=== PATIENT | male | born 1975 | race African-American/Black ===

== ENCOUNTER 2017-11-24 14:34 | Emergency (ER) | payer OTHER ==
--- NOTE | 2017-11-24 16:33 | Cat Scan Report ---
FINAL REPORT EXAM: CT HEAD/BRAIN WO CON HISTORY: head trauma TECHNIQUE: CT of the Head without IV contrast. PRIORS: None currently available. FINDINGS: There is no evidence for acute ischemia. There is no hemorrhage. There is no midline shift. There is no hydrocephalus. There is no mass. Age appropriate pelayo-white matter attenuation is noted. There is no calvarial fracture. The temporal bones demonstrate aerated mastoid air cells. The middle ears appear unremarkable. Moderate mucosal thickening in both ethmoid sinuses. Antm-en-lklfikgb mucosal thickening in both sphenoid sinuses and maxillary sinuses. Possible air-fluid level in the right maxillary sinus. Irregularity of the right orbital floor and right posterior maxillary wall is suspicious for fracture. Globes are intact. IMPRESSION: No acute intracranial findings. Sinus disease. Possible air-fluid level in the right maxillary sinus. Possible left orbital floor and posterior maxillary wall fractures. Maxillofacial CT may be helpful if clinically indicated.
[2017-11-24] MEDS ORDERED: NACL 0.9% 500 ML IR ONE (17:05)
--- NOTE | 2017-11-24 17:19 | Emergency Department Report ---
ED Head Trauma HPI - General Chief complaint: Head Injury Stated complaint: LFT SIDE KNOT Time Seen by Provider: 11/24/17 16:49 Source: patient Mode of arrival: Ambulatory Limitations: No Limitations - History of Present Illness Initial comments: Patient is 42 years old male. He presented to the ER complaining of head injury. Patient stated that a tree fell on his head. Patient presented with a 4 cm laceration to the left part of the scalp, bleeding controlled. Patient denied any loss of consciousness or other injuries. MD Complaint: head injury -: Sudden, This afternoon Location: frontal Loss of Consciousness: no Previous Trauma to this Area: No Place: home Radiation: none - Related Data Previous Rx's Medication Instructions Recorded Last Taken Type Omeprazole [Prilosec] 40 mg PO QDAY #30 capsule. 12/21/12 Unknown Rx Amoxicillin [Amoxicillin TAB] 875 mg PO BID #14 tablet 11/24/17 Unknown Rx HYDROcodone/APAP 5-325 [[place] 1 each PO Q6HR PRN #14 tablet 11/24/17 Unknown Rx 5/325] Ondansetron [Zofran Odt] 4 mg PO Q8HR PRN #14 tab.rapdis 11/24/17 Unknown Rx Allergies/Adverse reactions: Allergies Allergy/AdvReac Type Severity Reaction Status Date / Time No Known Allergies Allergy Verified 12/21/12 10:43 ED Review of Systems ROS: Stated complaint: LFT SIDE KNOT Other details as noted in HPI Comment: All other systems reviewed and negative Constitutional: denies: chills, fever Respiratory: denies: cough, orthopnea, shortness of breath, SOB with exertion, wheezing Cardiovascular: denies: chest pain, palpitations Gastrointestinal: denies: abdominal pain, nausea, vomiting, diarrhea, constipation, hematochezia Genitourinary: denies: urgency, dysuria, frequency, hematuria, testicular pain Musculoskeletal: denies: back pain Neurological: denies: headache, weakness, numbness, paresthesias, abnormal gait ED Past Medical Hx - Past Medical History Hx Asthma: No - Social History Smoking Status: Never Smoker Substance Use Type: None - Medications Home Medications: Home Medications Medication Instructions Recorded Confirmed Last Taken Type Omeprazole [Prilosec] 40 mg PO QDAY #30 capsule. 12/21/12 Unknown Rx Amoxicillin [Amoxicillin TAB] 875 mg PO BID #14 tablet 11/24/17 Unknown Rx HYDROcodone/APAP 5-325 [[place] 1 each PO Q6HR PRN #14 tablet 11/24/17 Unknown Rx 5/325] Ondansetron [Zofran Odt] 4 mg PO Q8HR PRN #14 tab.rapdis 11/24/17 Unknown Rx ED Physical Exam - General Limitations: No Limitations General appearance: alert, in no apparent distress - Head Head exam: Present: normal inspection, other (4 cm laceration to the scalp left parietal area) - Eye Eye exam: Present: normal appearance, PERRL - ENT ENT exam: Present: normal exam, normal orophraynx, mucous membranes moist - Neck Neck exam: Present: normal inspection, full ROM. Absent: tenderness, meningismus, lymphadenopathy, thyromegaly - Respiratory Respiratory exam: Present: normal lung sounds bilaterally. Absent: respiratory distress, wheezes, rales, chest wall tenderness - Cardiovascular Cardiovascular Exam: Present: regular rate, normal rhythm, normal heart sounds - GI/Abdominal GI/Abdominal exam: Present: soft, normal bowel sounds. Absent: distended, tenderness, guarding, rebound, rigid, organomegaly, mass, bruit, pulsatile mass , hernia - Extremities Exam Extremities exam: Present: normal inspection, full ROM, normal capillary refill. Absent: pedal edema, calf tenderness - Back Exam Back exam: Present: normal inspection, full ROM. Absent: CVA tenderness (R), CVA tenderness (L), muscle spasm, paraspinal tenderness, vertebral tenderness - Neurological Exam Neurological exam: Present: alert, oriented X3, CN II-XII intact, normal gait, reflexes normal - Skin Skin exam: Present: warm, normal color ED Course Vital Signs 11/24/17 11/24/17 11/24/17 14:42 15:42 17:54 Temperature 98.4 F Pulse Rate 94 H Respiratory 16 15 15 Rate Blood Pressure 151/99 O2 Sat by Pulse 100 Oximetry - Laceration /Wound Repair Head Wound Location: head Wound's Depth, Shape: linear Wound Explored: no foreign body removed Irrigated w/ Saline (ccs): 100 Betadine Prep?: Yes Wound Debrided: minimal Sterile Dressing Applied?: Yes (staple ) - Radiology Data Radiology results: report reviewed Referring Physician: ED DOC Patient Name: TASHIA JOSE Date of : 1975 Sex: Male Report Date: 2017-11-24 Report Status: Finalized Findings [facility] [address] [place] [address] Cat Scan Report Signed Patient: TASHIA JOSE MR#: [id number] : 1975 Acct:[id number] Age/Sex: 42 / M ADM Date: 11/24/17 Loc: ED Attending Dr: Ordering Physician: NEETU GARZON MD Date of Service: 11/24/17 Procedure(s): CT head/brain wo con Accession Number(s): [id number] cc: NEETU GARZON MD FINAL REPORT EXAM: CT HEAD/BRAIN WO CON HISTORY: head trauma TECHNIQUE: CT of the Head without IV contrast. PRIORS: None currently available. FINDINGS: There is no evidence for acute ischemia. There is no hemorrhage. There is no midline shift. There is no hydrocephalus. There is no mass. Age appropriate pelayo-white matter attenuation is noted. There is no calvarial fracture. The temporal bones demonstrate aerated mastoid air cells. The middle ears appear unremarkable. Moderate mucosal thickening in both ethmoid sinuses. Emlq-em-kbeqikpj mucosal thickening in both sphenoid sinuses and maxillary sinuses. Possible air-fluid level in the right maxillary sinus. Irregularity of the right orbital floor and right posterior maxillary wall is suspicious for fracture. Globes are intact. IMPRESSION: No acute intracranial findings. Sinus disease. Possible air-fluid level in the right maxillary sinus. Possible left orbital floor and posterior maxillary wall fractures. Maxillofacial CT may be helpful if clinically indicated. Transcribed By: TYM Dictated By: ELLIOTT GONZALEZ MD Electronically Authenticated By: ELLIOTT GONZALEZ MD Signed Date/Time: 11/24/17 1632 Referring Physician: JASBIR SEGOVIA Patient Name: TASHIA JOSE Date of : 1975 Sex: Male Report Date: 2017-11-24 Report Status: Finalized Findings [facility] [address] [place] [address] Cat Scan Report Signed Patient: TASHIA JOSE MR#: [id number] : 1975 Acct:[id number] Age/Sex: 42 / M ADM Date: 11/24/17 Loc: ED Attending Dr: Ordering Physician: JASBIR SEGOVIA Date of Service: 11/24/17 Procedure(s): CT facial bones wo con Accession Number(s): [id number] cc: JASBIR SEGOVIA FINAL REPORT EXAM: CT FACIAL BONES WO CON HISTORY: FALL, FASCIAL TRAUMA TECHNIQUE: Axial helical imaging through the face with sagittal and coronal reformatted images obtained. Comparison: None FINDINGS: There appears to be nondisplaced fractures through the anterior wall and lateral wall of the right maxillary sinus and possibly a nondisplaced fracture through the floor of the right orbit. The orbital contents are without evidence of acute posttraumatic change. The paranasal sinuses are notable for mild to moderate paranasal sinus mucosal thickening with air-fluid levels which likely represents a component of pre-existing sinusitis. Possible acute sinusitis. There is mild leftward nasal septal deviation. IMPRESSION: 1. Appearance of nondisplaced fractures in the anterior wall and lateral wall of the right maxillary sinus and possibly through the floor of the right orbit. 2. Paranasal sinus disease with air-fluid level suggestive of a component of acute sinusitis. Transcribed By: ED Dictated By: VIC HERNANDEZ MD Electronically Authenticated By: VIC HERNANDEZ MD Signed Date/Time: 11/24/171801 DD/ 01 TD/TT: 11/24/171801 DD/ 163 TD/TT: 11/24/17 163 Critical care attestation.: If time is entered above; I have spent that time in minutes in the direct care of this critically ill patient, excluding procedure time. ED Disposition Clinical Impression: Head injury, Laceration of skin of scalp, Orbit fracture, left Disposition: DC-01 TO HOME OR SELFCARE Is pt being admited?: No Condition: Stable Instructions: Laceration (ED), Minor Head Injury (ED) Additional Instructions: Removal of evelyne in 7 days. Please follow-up with her primary care physician for referral to facial maxillary surgeon in the next 3-4 days. Prescriptions: Amoxicillin [Amoxicillin TAB] 875 mg PO BID #14 tablet HYDROcodone/APAP 5-325 [[place] 5/325] 1 each PO Q6HR PRN #14 tablet PRN Reason: Pain Ondansetron [Zofran Odt] 4 mg PO Q8HR PRN #14 tab.rapdis PRN Reason: Nausea And Vomiting Referrals: PRIMARY CARE,MD [Primary Care Provider] - 3-5 Days
[2017-11-24] MEDS ORDERED: ZOFRAN IM ONE (17:22)
[2017-11-24] MEDS ORDERED: BOOSTRIX IM ONE (17:22)
[2017-11-24] MEDS ORDERED: MORPHINE IM ONE (17:22)
--- NOTE | 2017-11-24 18:03 | Cat Scan Report ---
FINAL REPORT EXAM: CT FACIAL BONES WO CON HISTORY: FALL, FASCIAL TRAUMA TECHNIQUE: Axial helical imaging through the face with sagittal and coronal reformatted images obtained. Comparison: None FINDINGS: There appears to be nondisplaced fractures through the anterior wall and lateral wall of the right maxillary sinus and possibly a nondisplaced fracture through the floor of the right orbit. The orbital contents are without evidence of acute posttraumatic change. The paranasal sinuses are notable for mild to moderate paranasal sinus mucosal thickening with air-fluid levels which likely represents a component of pre-existing sinusitis. Possible acute sinusitis. There is mild leftward nasal septal deviation. IMPRESSION: 1. Appearance of nondisplaced fractures in the anterior wall and lateral wall of the right maxillary sinus and possibly through the floor of the right orbit. 2. Paranasal sinus disease with air-fluid level suggestive of a component of acute sinusitis.
[2017-11-24 18:38] VITALS: BP 144/93
== END 2017-11-24 18:38 | disposition home or self-care (01) ==
LOC: ED 14:34
DX: S02.32XA Fracture of orbital floor, left side, initial encounter for closed fracture (principal); S01.01XA Laceration without foreign body of scalp, initial encounter; W20.8XXA Other cause of strike by thrown, projected or falling object, initial encounter; Y93.89 Activity, other specified; Y92.89 Other specified places as the place of occurrence of the external cause; Y99.8 Other external cause status
CPT/HCPCS: 12002; 70450; 70486; 90471; 90715; 96372; 99283; J2270; J2405